=== PATIENT | female | born 1955 | race African-American/Black ===

== ENCOUNTER 2022-06-05 15:51 | Emergency (ER) | payer OTHER ==
[2022-06-05] MEDS ORDERED: HYDROcodone/Acetaminophen 5/325 mg Tablet ONE ×2 (17:13→17:21)
[2022-06-05] MEDS ORDERED: predniSONE 20 MG TAB ONE (17:13)
== END 2022-06-05 17:26 | disposition home or self-care (01) ==
LOC: BURERS 15:51
DX: M54.12 Radiculopathy, cervical region (principal); I10 Essential (primary) hypertension; E78.00 Pure hypercholesterolemia, unspecified; F17.290 Nicotine dependence, other tobacco product, uncomplicated
CPT/HCPCS: 99283; J7512

== ENCOUNTER 2022-06-06 05:06 | Emergency (ER) | payer OTHER ==
[2022-06-06] MEDS ORDERED: HYDROcodone/Acetaminophen 10/325 mg Tablet ONE (08:46)
== END 2022-06-06 08:51 | disposition home or self-care (01) ==
LOC: BURERS 05:06
DX: S10.93XA Contusion of unspecified part of neck, initial encounter (principal); E78.00 Pure hypercholesterolemia, unspecified; I10 Essential (primary) hypertension; F17.290 Nicotine dependence, other tobacco product, uncomplicated; Z79.899 Other long term (current) drug therapy; Y04.0XXA Assault by unarmed brawl or fight, initial encounter
CPT/HCPCS: 70450; 72125

== ENCOUNTER 2022-06-08 06:18 | Emergency (ER) | payer OTHER ==
[2022-06-08] MEDS ORDERED: Cyclobenzaprine 10 MG TAB ONE (06:53)
== END 2022-06-08 06:55 ==
LOC: BURERS 06:18
DX: R07.89 Other chest pain (principal); E78.00 Pure hypercholesterolemia, unspecified; I10 Essential (primary) hypertension; F17.290 Nicotine dependence, other tobacco product, uncomplicated; Z79.82 Long term (current) use of aspirin
CPT/HCPCS: 93005